=== PATIENT | female | born 1965 | race Caucasian/White ===

== ENCOUNTER → 2016-06-29 | Outpatient (CLI) | payer BC ==
[~2016-06-29] MED LIST: MULT-506 PO; [UNRECOGNIZED DRUG - OTHER] PO
--- NOTE | 2016-06-29 10:24 | DIAGNOSTIC IMAGING REPORT ---
CT SCAN OF THE ABDOMEN AND PELVIS WITHOUT CONTRAST CLINICAL HISTORY: Bilateral flank pain, hematuria. COMPARISON STUDY: No previous studies for comparison. TECHNIQUE: CT scan of the abdomen and pelvis was performed from the lung bases to the proximal femurs. Images are reviewed in the axial, sagittal, and coronal planes. IV contrast was not administered for this examination. CT DOSE: 595.24 mGy.cm FINDINGS: Lower chest: There is a tiny calcified granuloma the left lung base. Heart is normal in size. Liver: The unenhanced liver is normal in size, contour, and attenuation. There is no intrahepatic biliary ductal dilatation. Gallbladder: Unremarkable. Spleen: Normal in size and attenuation. Pancreas: Unremarkable. Adrenal glands: Unremarkable. Kidneys: No renal, ureteral, or bladder calculi are visualized. Bowel: There are no transition zones indicate bowel obstruction. By history the patient is status post an appendectomy. There is no acute diverticulitis. Peritoneum: There is a small amount of free pelvic fluid, likely physiologic. There is no free air. Vasculature: The abdominal aorta is normal in course and caliber. Adenopathy: None. Pelvic viscera: There is a 3.7 cm left ovarian cyst/follicle Skeletal structures: There are postsurgical changes of a total left hip arthroplasty. IMPRESSION: 1. No renal, ureteral, or bladder calculi identified 2. No evidence of bowel obstruction. No evidence of free air 3. No evidence of acute diverticulitis 4. 3.7 cm left ovarian cyst/follicle. Ultrasound follow-up might be considered, particularly if this patient is postmenopausal. Electronically signed by: Jose Turner M.D. 06/29/2016 10:22 AM Dictated Date/Time: 06/29/2016 10:13 AM
== END | disposition home or self-care (01) ==
LOC: C.CTS 09:54
PROVIDERS: ATTEND Family Medicine
DX: R10.9 Unspecified abdominal pain (principal); R31.29 Other microscopic hematuria; N83.202 Unspecified ovarian cyst, left side

== ENCOUNTER → 2016-09-15 | Outpatient (CLI) | payer BC ==
[2016-09-15 12:28] LABS: BASO % 0.4 %; BASO ABS # 0.03 K/uL (0-0.2); COMPLETE YES; HEMATOCRIT 40.2 % (37-47); IG% 0.1 %; LYMPH % 16.4 %; MEAN CELL VOLUME 92.8 fL (80-100); MEAN CORPUSCULAR HEMOGLOBIN 30.5 pg (25-34); MEAN CORPUSCULAR HGB CONC 32.8 g/dl (32-36); MEAN PLATELET VOLUME 11.4 fL (7.4-10.4); MONO % 7.3 %; NEUT % 74.8 %; PLATELET COUNT 242 K/uL (130-400); RED BLOOD COUNT 4.33 M/uL (4.2-5.4); WHITE BLOOD COUNT 7.31 K/uL (4.8-10.8)
== END | disposition home or self-care (01) ==
LOC: C.LAB1850 10:22
PROVIDERS: ATTEND Obstetrics & Gynecology
DX: Z01.818 Encounter for other preprocedural examination (principal)

== ENCOUNTER → 2016-09-29 | Outpatient (CLI) | payer BC ==
[~2016-09-29] MED LIST changes: -MULT-506 PO
--- NOTE | 2016-09-29 14:40 | DIAGNOSTIC IMAGING REPORT ---
TWO VIEW CHEST CLINICAL HISTORY: Pulmonary rales on physical examination. FINDINGS: PA and lateral chest radiographs are compared to study dated 11/02/2012. The cardiomediastinal silhouette is unremarkable. The lungs and pleural spaces are clear. There is no pneumothorax. The bony thorax appears intact. IMPRESSION: No active disease in the chest. Electronically signed by: Marcel Jordan M.D. 09/29/2016 2:37 PM Dictated Date/Time: 09/29/2016 2:37 PM
== END | disposition home or self-care (01) ==
LOC: C.RAD1850 14:07
PROVIDERS: ATTEND Family Medicine
DX: R09.89 Other specified symptoms and signs involving the circulatory and respiratory systems (principal)

== ENCOUNTER → 2016-10-14 | Day surgery (SDC) | payer BC ==
[2016-09-20 13:05] VITALS: Ht 160 cm; Wt 68.2 kg
[~2016-10-14] VITALS: Ht 160 cm; Wt 68.2 kg
[~2016-10-14] MED LIST changes: +ATROPINE SULFATE 0.1 MG/ML 5ML SYR IV PRN; +CEFAZOLIN SOD 1000MG/55 ML D5W IV ONE; +DEXAMETHASONE SOD INJ 4 MG/ML VIAL ONE; +EpHEDrine SULFATE INJ 50 MG/ML AMP IV PRN; +FENTANYL CITRATE INJ 50 MCG/1 ML 2 ML VIAL IV PRN; +FENTANYL CITRATE INJ 50 MCG/1 ML 2 ML VIAL ONE; +IBUPROFEN 600 MG TAB PO PRN; +KETOROLAC TROMETHAMINE 30 MG/ML VIAL IV. PRN; +KETOROLAC TROMETHAMINE 30 MG/ML VIAL ONE; +LACTATED RINGER'S 1000ML 1,000 ML IV SCH; +LIDOCAINE HCL 2% 2 ML VIAL (20MG/ML) ONE; +MIDAZOLAM HCL 1 MG/ML 2ML VIAL ONE; +ONDANSETRON INJ 2 MG/ML 2 ML VIAL IV PRN; +ONDANSETRON INJ 2 MG/ML 2 ML VIAL ONE; +OXYCODONE/ACETAMINOPHEN 5-325 TAB PO PRN; +PROMETHAZINE HCL INJ 25 MG in SODIUM CHLORIDE 0.9% 50ML 50 ML IV PRN; +PROPOFOL IV EMULSION 10 MG/ML 20 ML VIAL IV ONE; +SODIUM CHLORIDE 0.9% 1000ML 1,000 ML IV SCH
--- NOTE | 2016-10-14 07:32 | History & Physical Bridge - SC ---
H&P Re-Evaluation Bridge Note: I have examined the patient, reviewed the History & Physical and in the interval since the performance of the History & Physical I have noted the following changes of clinical significance: D+C, hysteroscopy, possible removal of polyp No changes noted
--- NOTE | 2016-10-14 08:14 | [facility] Post Operative Brief Note ---
Immediate Operative Summary Operative Date Oct 14, 2016. Pre-Operative Diagnosis Pelvic pain, Menorrhaigia Post-Operative Diagnosis Same as preop Procedure(s) Performed Dilatation And Curettage, Hysteroscopy Surgeon Dr. Kauffman Primer Expeditor And Drier Surgeon(s) None Estimated Blood Loss 5 mL Findings 5cm uterine cavity. No obvious mass Specimens A: Endocervical curettings Drains None Anesthesia General Complication(s) None Disposition Recovery Room / PACU
--- NOTE | 2016-10-14 08:16 | Discharge Instructions ---
Discharge Instructions Date of Service Oct 14, 2016. Admission Reason for Admission: Endometrial Polyp, Pelvic Pain,Menorrhagia Discharge Discharge Diagnosis / Problem: cervical mass Discharge Goals Goal(s): Routine recovery after surgery Activity Recommendations Activity Limitations: per Instructions/Follow-up section . Instructions / Follow-Up Instructions / Follow-Up ACTIVITY RECOMMENDATIONS: * Avoid tampons, douching, hot tubs, pools, and intercourse until bleeding has stopped. * May shower as usual. * No strenuous activity for 24-48 hours. After 24-48 hours, you may do anything you feel like doing (driving and sports are okay). SPECIAL CARE INSTRUCTIONS: Special Diet: * Mild nausea may occur in the immediate post-operative period. * Take clear liquids such as tea, cola or bouillon until all nausea has subsided; you may then resume your normal diet. Special Care: * Light bleeding and vaginal spotting can last from a few days to 3-4 weeks. Call your doctor if bleeding becomes heavier than the heaviest part of your period. * Check your temperature twice a day for one week. If it goes above 100.4 degrees Fahrenheit (38.0 Celsius), notify your doctor. * Call your doctor's office for an appointment for 6 weeks after your surgery. FOLLOW-UP VISIT: Call your doctor's office for an appointment for 6 weeks after your surgery. Current Hospital Diet Patient's current hospital diet: Discharge Diet Recommended Diet: Regular Diet Procedures Procedures Performed: Dilatation And Curettage, Hysteroscopy Pending Studies Studies pending at discharge: no Medical Emergencies . Who to Call and When: Medical Emergencies: If at any time you feel your situation is an emergency, please call 911 immediately. . Non-Emergent Contact Non-Emergency issues call your: Stope Miner . . "Provider Documentation" section prepared by Willie Kauffman. . VTE Core Measure Inpt VTE Proph given/why not?: Treatment not indicated
--- NOTE | 2016-10-14 08:49 | OPERATIVE REPORT ---
DATE OF OPERATION: 10/14/2016 PREOPERATIVE DIAGNOSES: Pelvic pain and possible cervical mass. POSTOPERATIVE DIAGNOSES: Pelvic pain, no obvious cervical mass. PROCEDURE: D\T\C, hysteroscopy. SPECIMENS: Endometrial curetting. SURGEON: Willie Kauffman MD FIRE CODE INSPECTOR: None. ESTIMATED BLOOD LOSS: 5 mL. FINDINGS: A 5 mm cavity of cervix somewhat stenotic, no obvious mass. DRAINS: None. ANESTHETIC: General. DISPOSITION: Recovery. COMPLICATIONS: None. DESCRIPTION OF PROCEDURE: Lars was given a general anesthetic, prepped and draped in dorsal lithotomy position. IV Ancef given preoperatively and care was taken on positioning due to artificial hip. Bladder drained. Uterus examined and found to be retroverted. Weighted speculum placed in the vagina and cervix grasped anteriorly with a single tooth tenaculum. I was able to dilate the cervix initially 4 cm and then looked again with the MyoSure hysteroscopy scope with the normal saline solution. I was able to eventually advance to 5 cm and advanced. There was no sign of perforation. I could not see tubal ostia due to prior endometrial ablation. There was no obvious cervical mass. It had the appearance of a post-ablation cavity. I did then perform curettage. I did get some specimen as well just to ensure we were not dealing with anything precancerous or cancerous. On reinspection with the hysteroscope, there was no sign of perforation. I did not feel I could advance beyond 5 cm as this would risk perforation, so at this stage the procedure was stopped. Sponge and instrument counts correct. I attest to the content of the Intraoperative Record and any orders documented therein. Any exceptions are noted below. MTDD
[2016-10-14 09:06] VITALS: TEMP 36.7
--- NOTE | 2016-10-14 09:13 | Anesthesia Progress Nt - [facility] ---
Anesthesia Post Op Note Date & Time Oct 14, 2016 at 09:13 Vital Signs Pain Intensity: 1 Vital Signs Past 12 Hours Date Time Temp Pulse Resp B/P Pulse Ox O2 Delivery O2 Flow Rate FiO2 10/14/16 09:06 36.7 66 18 126/76 97 10/14/16 08:50 36.4 72 17 10/14/16 08:50 73 17 129/81 100 10/14/16 08:45 66 16 10/14/16 08:45 66 16 118/75 98 10/14/16 08:41 122/91 10/14/16 08:40 71 14 10/14/16 08:40 14 10/14/16 08:40 Room Air 10/14/16 08:35 76 10 10/14/16 08:35 79 10 106/88 100 10/14/16 08:30 72 18 114/73 100 10/14/16 08:30 73 18 10/14/16 08:25 68 11 132/74 100 10/14/16 08:25 70 11 10/14/16 08:23 122/65 10/14/16 08:20 36.8 73 14 122/65 100 Diffusion Mask 6 10/14/16 06:52 37.0 76 16 138/82 100 Room Air Notes Mental Status: alert / awake / arousable, participated in evaluation Pt Amnestic to Procedure: Yes Nausea / Vomiting: adequately controlled Pain: adequately controlled Airway Patency, RR, SpO2: stable & adequate BP & HR: stable & adequate Hydration State: stable & adequate Anesthetic Complications: no major complications apparent
[2016-10-14 09:26] VITALS: BP 121/77; PULSE 71; O2SAT 98
== END | disposition home or self-care (01) ==
LOC: X.SURG 06:41
PROVIDERS: ATTEND Obstetrics & Gynecology
DX: R10.2 Pelvic and perineal pain (principal); N92.0 Excessive and frequent menstruation with regular cycle; N84.0 Polyp of corpus uteri; N83.209 Unspecified ovarian cyst, unspecified side; Z68.27 Body mass index [BMI] 27.0-27.9, adult; Z88.2 Allergy status to sulfonamides; Z96.642 Presence of left artificial hip joint; Z90.89 Acquired absence of other organs; Z80.0 Family history of malignant neoplasm of digestive organs; Z84.89 Family history of other specified conditions

== ENCOUNTER → 2017-07-25 | Outpatient (CLI) | payer OTHER ==
[~2017-07-25] MED LIST changes: -ATROPINE SULFATE 0.1 MG/ML 5ML SYR IV PRN; -CEFAZOLIN SOD 1000MG/55 ML D5W IV ONE; -DEXAMETHASONE SOD INJ 4 MG/ML VIAL ONE; -EpHEDrine SULFATE INJ 50 MG/ML AMP IV PRN; -FENTANYL CITRATE INJ 50 MCG/1 ML 2 ML VIAL IV PRN; -FENTANYL CITRATE INJ 50 MCG/1 ML 2 ML VIAL ONE; -IBUPROFEN 600 MG TAB PO PRN; -KETOROLAC TROMETHAMINE 30 MG/ML VIAL IV. PRN; -KETOROLAC TROMETHAMINE 30 MG/ML VIAL ONE; -LACTATED RINGER'S 1000ML 1,000 ML IV SCH; -LIDOCAINE HCL 2% 2 ML VIAL (20MG/ML) ONE; -MIDAZOLAM HCL 1 MG/ML 2ML VIAL ONE; -ONDANSETRON INJ 2 MG/ML 2 ML VIAL IV PRN; -ONDANSETRON INJ 2 MG/ML 2 ML VIAL ONE; -OXYCODONE/ACETAMINOPHEN 5-325 TAB PO PRN; -PROMETHAZINE HCL INJ 25 MG in SODIUM CHLORIDE 0.9% 50ML 50 ML IV PRN; -PROPOFOL IV EMULSION 10 MG/ML 20 ML VIAL IV ONE; -SODIUM CHLORIDE 0.9% 1000ML 1,000 ML IV SCH
--- NOTE | 2017-07-26 13:29 | MAMMOGRAPHY REPORT ---
BILATERAL DIGITAL SCREENING MAMMOGRAM TOMOSYNTHESIS WITH CAD: 07/25/2017 CLINICAL HISTORY: Routine screening. TECHNIQUE: Breast tomosynthesis in addition to standard 2D mammography was performed. Current study was also evaluated with a Computer Aided Detection (CAD) system. COMPARISON: Comparison is made to exams dated: 12/25/2015 mammogram, 11/19/2014 mammogram, 01/17/2013 derrek mogram, 01/11/2012 mammogram, 04/14/2010 mammogram - [facility], and 12/04/2008. BREAST COMPOSITION: The tissue of both breasts is heterogeneously dense, which may obscure small mas ses. FINDINGS: There are diffuse bilateral punctate microcalcifications. The parenchymal pattern is simil ar to prior mammograms. No developing mass, architectural distortion or cluster of suspicious microc alcifications is seen in either breast. IMPRESSION: ACR BI-RADS CATEGORY 2: BENIGN There is no mammographic evidence of malignancy. A 1 year screening mammogram is recommended. The pa tient will receive written notification of the results. Approximately 10% of breast cancers are not detected with mammography. A negative mammographic report should not delay biopsy if a clinically suggestive mass is present. Colette Ponce M.D. ay/:07/25/2017 15:35:39 Mutuel Cashier: Karen CARRINGTON(R)(M), [facility] letter sent: Normal 1/2 BI-RADS Code: ACR BI-RADS Category 2: Benign
== END | disposition home or self-care (01) ==
LOC: C.MAMM 07:30
PROVIDERS: ATTEND Nurse Practitioner Family
DX: Z12.31 Encounter for screening mammogram for malignant neoplasm of breast (principal)

== ENCOUNTER 2017-11-08 09:57 | Emergency (ER) | payer OTHER ==
[~2017-11-08] VITALS: Ht 160 cm; Wt 76.2 kg
[2017-11-08 10:09] VITALS: TEMP 36.9; Ht 160 cm; Wt 76.2 kg
[2017-11-08] MEDS ORDERED: FLUT0.15 NAE (10:58)
[2017-11-08] MEDS ORDERED: IBUP1TAB51 PO (10:58)
--- NOTE | 2017-11-08 11:05 | EMERGENCY ROOM VISIT NOTE ---
History Report prepared by Carlos Eduardo: Sal Osullivan Under the Supervision of: Dr. Davina Solano M.D. First contact with patient: 10:23 Chief Complaint: LEG PAIN,LEG INJURY Stated Complaint: LEFT CALF PAIN, RIGHT ANKLE INJURY, SWELLING History of Present Illness The patient is a 52 year old female who presents to the Emergency Room with complaints of worsening pain/swelling in her right leg that began 5 days ago. The patient stats that she was mowing the lawn when she felt a "pop" in her right calf. There is pain in the upper calf and ankle. At onset, she rates the severity of her pain as a 10/10. The bruising and swelling only began on Tuesday , 3 days following the initial accident. She has been able to ambulate normally for the past 5 days. 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 She notes that she had her hip replaced a few years ago and was placed on Coumadin following the procedure for anticoagulation. Source of History: patient Onset: 5 days ago Position: leg (right), ankle (right) Quality: other (swelling, "pop" sensation while mowing the lawn) Timing: worsening Review of Systems See HPI for pertinent positives & negatives. A total of 10 systems reviewed and were otherwise negative. Past Medical & Surgical Hx of DVT Social History Smoking Status: Never Smoker Drug Use: none Marital Status: Housing Status: lives with family Occupation Status: employed Current/Historical Medications Scheduled Fluticasone Propionate (Nasal) (Flonase Allergy Relief), 2 PUFFS RIA DAILY Scheduled PRN Ibuprofen-Famotidine (Duexis), 1 TAB PO TID PRN for Pain Allergies Coded Allergies: Sulfa Drugs (Verified Adverse Reaction, Unknown, SEVERE NAUSEA, 11/08/17) Physical Exam Vital Signs Date Time Temp Pulse Resp B/P (MAP) Pulse Ox O2 Delivery O2 Flow Rate FiO2 11/08/17 11:56 71 16 157/83 96 11/08/17 11:49 71 16 157/83 96 Room Air 11/08/17 10:09 36.9 72 16 189/95 98 Room Air Physical Exam Vital signs reviewed. General: Well-appearing female, in no significant distress. HEENT: No scleral icterus, PERRLA, neck supple. Atraumatic. Abdomen: Soft, nontender, nondistended, positive bowel sounds. Musculoskeletal: There is some mild swelling of the right lower extremity distally with bruising over the distal juárez, medial/lateral malleolus. There is no deformity appreciated. There is minimal tenderness to the right medial malleolus and the posterior right calf proximally. Neurologic: Patient awake alert and oriented x 3 Skin: Warm, dry, ecchymosis noted to the right lower extremity as described above. Medical Decision & Procedures ER Provider Diagnostic Interpretation: Radiology results as stated below per my review and radiologist interpretation: RIGHT ANKLE 3 VIEWS CLINICAL HISTORY: Right ankle pain and swelling. FINDINGS: 3 views of the right ankle are obtained. No prior studies are available for comparison at the time of dictation. The skeletal structures are osteopenic. No fracture is seen. The ankle mortise is intact. There is no joint effusion. Soft tissue swelling is present around ankle. There is a tiny dorsal calcaneal enthesophyte. IMPRESSION: Soft tissue swelling with no radiographic evidence of right ankle fracture. Electronically signed by: Marcel Jordan M.D. 11/08/2017 11:28 AM Dictated Date/Time: 11/08/2017 11:27 AM ULTRASOUND RIGHT LOWER EXTREMITY VENOUS CLINICAL HISTORY: Right leg swelling and bruising. COMPARISON STUDY: No priors. TECHNIQUE: Real-time, grayscale, and color Doppler sonography of the deep veins of the right lower extremity was performed from the inguinal crease to the calf. Compression and augmentation were utilized. FINDINGS: There is no sonographic evidence of deep venous thrombosis identified in the right lower extremity. The common femoral, superficial femoral, and popliteal veins are patent and normally compressible. The greater saphenous vein and the profunda femoris vein at the junction with the common femoral vein are clear. The visualized calf veins are patent. IMPRESSION: There is no sonographic evidence of deep venous thrombosis identified in the right lower extremity. Electronically signed by: Marcel Jordan M.D. 11/08/2017 11:42 AM Dictated Date/Time: 11/08/2017 11:41 AM ED Course 1058: Past medical records reviewed. The patient was evaluated in room C4. A complete history and physical examination was performed. 1156: Upon reevaluation, the patient appeared to have improvement of her symptoms. I discussed findings with her. She verbalized agreement of the treatment plan. The patient was discharged home. Medical Decision Differential diagnosis: Etiologies such as fracture, dislocation, neurovascular compromise, compartment syndrome, soft tissue injury, as well as others were entertained. This patient was evaluated and appeared to be in no significant distress. Physical exam is consistent with some swelling and ecchymosis of the right lower extremity. Patient is concerned about a DVT, stating her father has a history of clotting. Ultrasound was performed and is negative. X-ray of the ankle was performed and is negative. I suspect the patient had a strain or tear of the gastroc with some subsequent hematoma that is now settled in the distal extremity. She was advised to wear compression stocking and supportive shoes. She will follow-up with her PCP as soon as possible and return to the ER for worsening of symptoms or any medical concerns. Medication Reconcilliation Current Medication List: was personally reviewed by me Blood Pressure Screening Patient's blood pressure: Elevated blood pressure Impression Primary Impression: Strain of calf muscle Scribe Attestation The scribe's documentation has been prepared under my direction and personally reviewed by me in its entirety. I confirm that the note above accurately reflects all work, treatment, procedures, and medical decision making performed by me. Departure Information Dispostion Home / Self-Care Referrals Linda Kline (PCP) Forms HOME CARE DOCUMENTATION FORM, IMPORTANT VISIT INFORMATION Patient Instructions My [facility] Additional Instructions Diagnosis: Strain of the right calf Please wear a compression sock except when lying down or sleeping. Elevate the leg as much as possible. Avoid prolonged dependent position, for example prop your leg up on a step stool when at work. Wear supportive shoes, avoid high heels or flip-flops. Follow-up with your physician this week for reevaluation if symptoms do not improve. Return to the emergency department for worsening of symptoms or any medical concerns.
--- NOTE | 2017-11-08 11:30 | DIAGNOSTIC IMAGING REPORT ---
RIGHT ANKLE 3 VIEWS CLINICAL HISTORY: Right ankle pain and swelling. FINDINGS: 3 views of the right ankle are obtained. No prior studies are available for comparison at the time of dictation. The skeletal structures are osteopenic. No fracture is seen. The ankle mortise is intact. There is no joint effusion. Soft tissue swelling is present around ankle. There is a tiny dorsal calcaneal enthesophyte. IMPRESSION: Soft tissue swelling with no radiographic evidence of right ankle fracture. Electronically signed by: Marcel Jordan M.D. 11/08/2017 11:28 AM Dictated Date/Time: 11/08/2017 11:27 AM
--- NOTE | 2017-11-08 11:43 | DIAGNOSTIC IMAGING REPORT ---
ULTRASOUND RIGHT LOWER EXTREMITY VENOUS CLINICAL HISTORY: Right leg swelling and bruising. COMPARISON STUDY: No priors. TECHNIQUE: Real-time, grayscale, and color Doppler sonography of the deep veins of the right lower extremity was performed from the inguinal crease to the calf. Compression and augmentation were utilized. FINDINGS: There is no sonographic evidence of deep venous thrombosis identified in the right lower extremity. The common femoral, superficial femoral, and popliteal veins are patent and normally compressible. The greater saphenous vein and the profunda femoris vein at the junction with the common femoral vein are clear. The visualized calf veins are patent. IMPRESSION: There is no sonographic evidence of deep venous thrombosis identified in the right lower extremity. Electronically signed by: Marcel Jordan M.D. 11/08/2017 11:42 AM Dictated Date/Time: 11/08/2017 11:41 AM
[2017-11-08 11:56] VITALS: BP 157/83; PULSE 71; O2SAT 96
== END 2017-11-08 11:57 | disposition home or self-care (01) ==
LOC: C.EDB 09:59 → C.EDC 11:57
DX: S86.911A Strain of unspecified muscle(s) and tendon(s) at lower leg level, right leg, initial encounter (principal); X50.9XXA Other and unspecified overexertion or strenuous movements or postures, initial encounter; Y93.H2 Activity, gardening and landscaping